=== PATIENT | male | born 1955 | race African-American/Black ===

== ENCOUNTER 2020-06-18 13:49 | Inpatient (IN) | payer MEDICARE ==
[~2020-06-18] VITALS: Ht 172.7 cm; Wt 87.5 kg
--- NOTE | 2020-06-18 14:17 | NUR ---
URINE COLLECTED AND SENT TO LAB.
[2020-06-18 14:28] LABS: BASOPHILS 0 % (0-2); EOSINOPHILS 0.8 % (0-7); HEMATOCRIT 25.5 % (42.0-54.0); HEMOGLOBIN 8.6 g/dL (13.5-17.5); IMMATURE GRANULOCYTES 0.4 % (0-5); LYMPHOCYTE ABS# 1.04 10x3/uL (1.32-3.57); LYMPHOCYTES 20.6 % (15-50); MCH 28.6 pg (26.0-34.0); MCHC 33.7 g/dL (31.0-37.0); MCV 84.7 fL (80.0-100.0); MEAN PLATELET VOLUME 9.9 fL (7.4-10.4); MONOCYTES 10.9 % (2-11); NEUTROPHIL ABS# 3.39 10x3/uL (1.78-5.38); NEUTROPHILS 67.3 % (40-80); PLATELET COUNT 153 10x3/uL (130-400); RBC 3.01 10x6/uL (4.20-6.10); RDW 13.6 % (11.5-14.5)
[2020-06-18 14:35] LABS: APTT 29.3 SECONDS (22.8-39.4); INR 1.27 (0.85-1.17); PROTIME 14.7 SECONDS (11.6-15.0)
[2020-06-18 14:45] LABS: BILIRUBIN NEGATIVE (NEGATIVE); KETONE NEGATIVE (NEGATIVE); NITRITE NEGATIVE (NEGATIVE); UROBILINOGEN NORMAL mg/dL (< 2)
[2020-06-18 14:46] LABS: WHITE CELLS - URINE 0-5 HPF (0-1)
[2020-06-18 14:47] LABS: BACTERIA T HPF (NONE SEEN); SQUAMOUS EPITHELIAL 0-5 HPF (0-4)
[2020-06-18 14:49] LABS: AMORPHOUS SEDIMENT <1+ LPF (NONE SEEN)
[2020-06-18 14:51] LABS: ALBUMIN 4.1 g/dL (3.4-5.0); ALKALINE PHOSPHATASE 67 U/L (30-120); ALT (SGPT) 18 U/L (10-68); BILIRUBIN - TOTAL 0.29 mg/dL (0.2-1.3); CALC OSMOLALITY 322 mosm/kg (275-300); CALCIUM 9.1 mg/dL (8.5-10.1); CARBON DIOXIDE 17.7 mmol/L (21.0-32.0); CHLORIDE - SERUM 103 mmol/L (98-107); CREATINE KINASE 219 UL (21-232); CREATININE - SERUM 13.4 mg/dL (0.6-1.3); GLUCOSE 106 mg/dL (74-106); MAGNESIUM - SERUM 1.8 mg/dL (1.8-2.4); POTASSIUM - SERUM 3.9 mmol/L (3.5-5.1); PROTEIN - SERUM 8.9 g/dL (6.4-8.2); SODIUM 143 mmol/L (136-145); TROPONIN-I < 0.017 ng/mL (0.000-0.060); eGFR NON AFRICAN AMERICAN 4 mL/min (90-120)
[2020-06-18 15:20] LABS: UREA NITROGEN 120 mg/dL (7-18)
[2020-06-18] MEDS ORDERED: FLOMAX0.4 MG PO (15:34)
[2020-06-18] MEDS ORDERED: PROCARDIA XL60 MG PO (15:34)
[2020-06-18] MEDS ORDERED: PROTONIX40 MG PO (15:34)
[2020-06-18] MEDS ORDERED: METOPROLOL TART25 MG PO (15:35)
[2020-06-18] MEDS ORDERED: CLONIDINE HCL0.1 MG PO (15:35)
[2020-06-18] MEDS ORDERED: LASIX40 MG ×2 (15:35→16:37)
[2020-06-18] MEDS ORDERED: COMBIGAN OPHT DR5 ML EACH EYE ×2 (15:36→16:35)
[2020-06-18] MEDS ORDERED: PROTONIX40 MG (16:35)
[2020-06-18] MEDS ORDERED: FUROSEMIDE40 MG PO (16:35)
[2020-06-18] MEDS ORDERED: VERIPRED 220 MG/5 ML PO (16:39)
[2020-06-18 17:12] VITALS: BP 160/96; BMI 33.5
--- NOTE | 2020-06-18 17:23 | NUR ---
RECD TO MED 2. PT ORIENTED TO CALL LIGHT AND PLAN OF CARE.
[2020-06-18 21:53] VITALS: BP 134/92
[2020-06-19 01:54] VITALS: BP 123/80
[2020-06-19 06:24] VITALS: BP 134/82
[2020-06-19 06:46] LABS: % SATURATION 36 % (15-55); IRON 63 ug/dl (35-150); TOTAL IRON BIND CAPACITY 175 ug/dl (260-445); UNSAT IRON BIND CAPACITY 112 ug/dl (150-375)
[2020-06-19 06:49] LABS: ALBUMIN 3.3 g/dL (3.4-5.0); ANION GAP 24.3 mmol/L (8-16); BILIRUBIN - TOTAL 0.22 mg/dL (0.2-1.3); CALCIUM 8.7 mg/dL (8.5-10.1); CARBON DIOXIDE 16.3 mmol/L (21.0-32.0); MAGNESIUM - SERUM 1.7 mg/dL (1.8-2.4); PHOSPHOROUS 7.2 mg/dL (2.5-4.9); POTASSIUM - SERUM 3.6 mmol/L (3.5-5.1); PROTEIN - SERUM 7.2 g/dL (6.4-8.2)
[2020-06-19 06:51] LABS: BASOPHILS 0.2 % (0-2); EOSINOPHILS 1.7 % (0-7); HEMATOCRIT 21.2 % (42.0-54.0); IMMATURE GRANULOCYTES 0.2 % (0-5); LYMPHOCYTE ABS# 1.34 10x3/uL (1.32-3.57); LYMPHOCYTES 31.7 % (15-50); MCH 28.2 pg (26.0-34.0); MCHC 33.5 g/dL (31.0-37.0); MCV 84.1 fL (80.0-100.0); MEAN PLATELET VOLUME 10.3 fL (7.4-10.4); MONOCYTES 11.8 % (2-11); NEUTROPHILS 54.4 % (40-80); PLATELET COUNT 132 10x3/uL (130-400); RBC 2.52 10x6/uL (4.20-6.10); RDW 13.4 % (11.5-14.5); WBC 4.2 10x3/uL (4.8-10.8)
--- NOTE | 2020-06-19 07:00 | NUR ---
RECEIVED REPORT. ASSUMED CARE OF PATIENT. CALL LIGHT WITHIN REACH. WHITE BOARD UPDATED, BEDSIDE SHIFT REPORT COMPLETE. TOLERATING IV FLUIDS WELL AND STATES HE FEELS BETTER AFTER RECIEVING FLUIDS. PATIENT AT BEDSIDE. NO DISTRESS. DENIES NEEDS.
[2020-06-19 07:07] LABS: HEMOGLOBIN 7.1 g/dL (13.5-17.5)
[2020-06-19 08:17] VITALS: BP 132/82
--- NOTE | 2020-06-19 08:30 | NUR ---
NEW ORDER FOR 1 UNIT PRBCs AFTER NOTIFYING SYSTEM SUPPORT TECHNICIAN OF LOW H/H.
--- NOTE | 2020-06-19 11:03 | NUR ---
ONE UNIT PRBCs INFUSING AT THIS TIME. VS STABLE. NO DISTRESS. TOLERATING INFUSION WELL. NO DISTRESS
[2020-06-19 12:48] VITALS: BP 134/83
--- NOTE | 2020-06-19 13:19 | NUR ---
TOLERATING BLOOD TRANSFUSION WELL. NO DISTRESS.
--- NOTE | 2020-06-19 14:28 | NUR ---
BLOOD INFUSION COMPLETE. NO DISTRESS. TOLERATED BLOOD TRANSFUSION WELL. PATIENT OOB TO RESTROOM AT THIS TIME.
[2020-06-19 14:52] VITALS: Ht 172.7 cm; Wt 87.5 kg
--- NOTE | 2020-06-19 16:00 | NUR ---
SCD EDUCATION PROVIDED. PATIENT DOES NOT WANT SCDs AT THIS TIME, PATIENT IS AMBULATORY. PATIENT STATES HE MIGHT TRY THEM LATER.
[2020-06-19 16:37] VITALS: BP 138/83
[2020-06-19 20:30] VITALS: BP 152/88
[2020-06-20 01:56] VITALS: BP 133/84
[2020-06-20 05:48] VITALS: BP 145/98
[2020-06-20 06:10] LABS: BASOPHILS 0.2 % (0-2); EOSINOPHILS 1.8 % (0-7); HEMATOCRIT 24.3 % (42.0-54.0); HEMOGLOBIN 8.1 g/dL (13.5-17.5); LYMPHOCYTE ABS# 1.24 10x3/uL (1.32-3.57); LYMPHOCYTES 25.3 % (15-50); MCH 28.4 pg (26.0-34.0); MCHC 33.3 g/dL (31.0-37.0); MCV 85.3 fL (80.0-100.0); MEAN PLATELET VOLUME 10.3 fL (7.4-10.4); MONOCYTES 8.4 % (2-11); NEUTROPHIL ABS# 3.16 10x3/uL (1.78-5.38); NEUTROPHILS 64.3 % (40-80); PLATELET COUNT 122 10x3/uL (130-400); RBC 2.85 10x6/uL (4.20-6.10); RDW 13.5 % (11.5-14.5); WBC 4.9 10x3/uL (4.8-10.8)
[2020-06-20 06:41] LABS: ALBUMIN 3.1 g/dL (3.4-5.0); ANION GAP 21.3 mmol/L (8-16); BILIRUBIN - TOTAL 0.28 mg/dL (0.2-1.3); CALCIUM 8.5 mg/dL (8.5-10.1); CARBON DIOXIDE 17.3 mmol/L (21.0-32.0); CREATININE - SERUM 11.2 mg/dL (0.6-1.3); MAGNESIUM - SERUM 1.5 mg/dL (1.8-2.4); PHOSPHOROUS 6.3 mg/dL (2.5-4.9); POTASSIUM - SERUM 3.6 mmol/L (3.5-5.1); PROTEIN - SERUM 6.9 g/dL (6.4-8.2)
--- NOTE | 2020-06-20 07:00 | NUR ---
RECEIVED REPORT. ASSUMED CARE OF PATIENT. RESTING WELL IN BED. PATIENT AT BEDSIDE. IV FLUIDS INFUSING ORDERED. CALL LIGHT WITHIN REACH. WHITE BOARD UPDATED. BEDSIDE SHIFT REPORT COMPLETE. NO DISTRESS.
[2020-06-20 08:47] VITALS: BP 138/87
--- NOTE | 2020-06-20 10:00 | NUR ---
WEIGHT OBTAINED USING STANDING SCALE 194.4 LBS,
[2020-06-20 12:16] VITALS: BP 1338/91
[2020-06-20 16:22] VITALS: BP 114/78
--- NOTE | 2020-06-20 17:00 | NUR ---
RESTING WELL IN BED WITH ATTENTION TOWARD TELEVISION. NO DISTRESS. DENIES NEEDS. CALL LIGHT WITHIN REACH.
[2020-06-20 21:58] VITALS: BP 134/86
[2020-06-21 02:07] VITALS: BP 141/88
[2020-06-21 06:07] VITALS: BP 140/88
[2020-06-21 06:32] LABS: BASOPHILS 0 % (0-2); EOSINOPHILS 2.1 % (0-7); HEMATOCRIT 25.5 % (42.0-54.0); HEMOGLOBIN 8.6 g/dL (13.5-17.5); IMMATURE GRANULOCYTES 0.2 % (0-5); LYMPHOCYTE ABS# 0.82 10x3/uL (1.32-3.57); LYMPHOCYTES 18.8 % (15-50); MCH 28.9 pg (26.0-34.0); MCHC 33.7 g/dL (31.0-37.0); MCV 85.6 fL (80.0-100.0); MEAN PLATELET VOLUME 10.5 fL (7.4-10.4); MONOCYTES 4.1 % (2-11); NEUTROPHIL ABS# 3.26 10x3/uL (1.78-5.38); NEUTROPHILS 74.8 % (40-80); PLATELET COUNT 131 10x3/uL (130-400); RBC 2.98 10x6/uL (4.20-6.10); RDW 13.5 % (11.5-14.5); WBC 4.4 10x3/uL (4.8-10.8)
[2020-06-21 06:48] LABS: ALBUMIN 3.2 g/dL (3.4-5.0); ANION GAP 19.3 mmol/L (8-16); BILIRUBIN - TOTAL 0.24 mg/dL (0.2-1.3); CALCIUM 8.6 mg/dL (8.5-10.1); CARBON DIOXIDE 19.6 mmol/L (21.0-32.0); MAGNESIUM - SERUM 1.5 mg/dL (1.8-2.4); PHOSPHOROUS 5.9 mg/dL (2.5-4.9); POTASSIUM - SERUM 3.9 mmol/L (3.5-5.1); PROTEIN - SERUM 6.9 g/dL (6.4-8.2)
--- NOTE | 2020-06-21 07:00 | NUR ---
RECIEVED REPORT. ASSUMED CARE OF PATIENT. BEDSIDE SHIFT REPORT COMPLETE. WHITE BOARD UPDATED. PATIENT SPOUSE AT BEDSIDE. PATIENT LYING IN BED, AWAKE AND ALERT, AWAITING EGD THIS AM. PATIENT IS NPO AT THIS TIME. NO DISTRESS. CALL LIGHT WITHIN REACH.
--- NOTE | 2020-06-21 08:10 | NUR ---
PATIENT LEFT UNIT VIA BED FOR EGD AT THIS TIME. NO DISTRESS UPON LEAVING UNIT.
[2020-06-21 08:17] VITALS: BP 140/85
--- NOTE | 2020-06-21 09:24 | NUR ---
PATIENT RETURNED FROM EGD WITH DILITATION, PATIENT TOLERATED PROCEDURE WELL. ALERT/ORIENTED, TALKING. CALL LIGHT WITHIN REACH. NO DISTRESS. VS STABLE. MONITORING GAG REFLEX.
--- NOTE | 2020-06-21 10:12 | NUR ---
PATIENT RESTING WITH ATTENTION TOWARD TELEVISION. MAGNESIUM INFUSING AT THIS TIME ORDERED WHEN PT WAS NOT AVAILABLE THIS AM. NO DISTRESS. CALL LIGHT WITHIN REACH.
[2020-06-21 12:02] VITALS: BP 159/96
--- NOTE | 2020-06-21 13:00 | NUR ---
RESTING IN BED WITH EYES OPEN, ATTENTION TOWARD TELEVISION. NO DISTRESS. CALL LIGHT WITHIN REACH.
--- NOTE | 2020-06-21 14:45 | NUR ---
NORMA PROVIDED UPON REQUEST.
[2020-06-21 16:25] VITALS: BP 141/86
--- NOTE | 2020-06-21 16:45 | NUR ---
PATIENT RESTING IN BED, PM MEAL SERVED AT THIS TIME. CALL LIGHT WITHIN REACH. DENIES NEEDS. PATIENT SPOUSE AT BEDSIDE.
--- NOTE | 2020-06-21 19:45 | NUR ---
REPORT RECEIVED, PT A&O UP IN BED WITH FAMILY AT BEDSIDE. NO S/S OF DISTRESS OBSERVED. RR EVEN & UNLABORED ON RA. BED LOCKED AND LOWERED, CL IN REACH. ASSESSMENT COMPLETE. WILL CONT POC.
[2020-06-21 20:00] VITALS: BP 139/82
[2020-06-22 06:44] LABS: BASOPHILS 0.2 % (0-2); EOSINOPHILS 1.9 % (0-7); HEMATOCRIT 27.2 % (42.0-54.0); HEMOGLOBIN 9.1 g/dL (13.5-17.5); IMMATURE GRANULOCYTES 0.2 % (0-5); LYMPHOCYTE ABS# 1.09 10x3/uL (1.32-3.57); LYMPHOCYTES 21.1 % (15-50); MCH 28.8 pg (26.0-34.0); MCHC 33.5 g/dL (31.0-37.0); MCV 86.1 fL (80.0-100.0); MONOCYTES 6.6 % (2-11); NEUTROPHIL ABS# 3.61 10x3/uL (1.78-5.38); PLATELET COUNT 122 10x3/uL (130-400); RBC 3.16 10x6/uL (4.20-6.10); RDW 13.8 % (11.5-14.5); WBC 5.2 10x3/uL (4.8-10.8)
[2020-06-22 07:00] VITALS: BP 124/78
[2020-06-22 07:14] LABS: ALBUMIN 3.2 g/dL (3.4-5.0); ANION GAP 20.8 mmol/L (8-16); BILIRUBIN - TOTAL 0.21 mg/dL (0.2-1.3); CALCIUM 8.8 mg/dL (8.5-10.1); CARBON DIOXIDE 17.1 mmol/L (21.0-32.0); CREATININE - SERUM 9.5 mg/dL (0.6-1.3); MAGNESIUM - SERUM 1.7 mg/dL (1.8-2.4); PHOSPHOROUS 5.2 mg/dL (2.5-4.9); POTASSIUM - SERUM 3.9 mmol/L (3.5-5.1); PROTEIN - SERUM 7.1 g/dL (6.4-8.2)
--- NOTE | 2020-06-22 08:11 | NUR ---
AM ROUNDING DONE, ON ROOM AIR. ON HEART MONITOR. LEFT FA SEEN WITH PIV OF LR AT 75 CC/HR. ORANGE SWAB CAP PLACED. AT BEDSIDE. NEED STOOL SAMPLE. REQUESTING STOOL SOFTNER, ATE PRUNES. UP AT MISA.
[2020-06-22 11:00] VITALS: BP 150/72
[2020-06-22 11:11] LABS: SPE - A/G RATIO 1.1 (0.7-1.7); SPE - ALBUMIN 3.5 g/dL (2.9-4.4); SPE - ALPHA-1 GLOBULIN 0.2 g/dL (0.0-0.4); SPE - ALPHA-2 GLOBULIN 0.7 g/dL (0.4-1.0); SPE - BETA GLOBULIN 0.9 g/dL (0.7-1.3); SPE - GAMMA GLOBULIN 1.4 g/dL (0.4-1.8); SPE - M-SPIKE Not Observed g/dL (Not Observed); SPE - TOTAL PROTEIN 6.6 g/dL (6.0-8.5)
[2020-06-22 11:30] VITALS: BP 121/83
--- NOTE | 2020-06-22 11:43 | NUR ---
HEART MONITOR TAKEN OFF ORDERED AND TURNED IN.
[2020-06-22 12:11] LABS: UPE RAND - ALBUMIN 41.9 % (()); UPE RAND - ALPHA 1 GLOBULIN 5.3 % (()); UPE RAND - ALPHA 2 GLOBULIN 13.4 % (()); UPE RAND - GAMMA GLOBULIN 18.4 % (())
[2020-06-22 13:11] LABS: CEA 1.9 ng/mL (0.0-4.7)
--- NOTE | 2020-06-22 13:47 | NUR ---
Nutrition Follow-up: S/p EGD with dilation yesterday. Good appetite/PO intake. States last BM was 06/19. Noted diet was resumed as regular following procedure yesterday. Diet: Regular Wt: 192.8# (06/21 - bedscale); 194.4# (06/20 - standing); 220# (06/18 - stated) Labs noted: K+ 3.9, BUN 91, Cre 9.5, GFR 7, PO4 5.2, Mg 1.7, Alb 3.2 Meds noted: Venofer, Nephrovite, Pepcid, Renagel, LR @ 75, electrolyte protocol -Change back to renal diet. -Monitor wt. -RD will follow up within 7 days if pt still admitted.
[2020-06-22 16:00] VITALS: BP 126/79
--- NOTE | 2020-06-22 19:26 | NUR ---
REPORT RECEIVED, PT A&O, UP IN BED WITH FAMILY AT BEDSIDE. NO S/S OF DISTRESS OBSERVED. RR EVEN & UNLABORED ON RA. BED LOCKED AND LOWERED, CL IN REACH. ASSESSMENT COMPLETE. WILL CONT POC.
[2020-06-22 20:00] VITALS: BP 143/88
[2020-06-23] VITALS: BP 145/92
[2020-06-23 04:00] VITALS: BP 147/92
[2020-06-23 05:54] LABS: BASOPHILS 0.2 % (0-2); EOSINOPHILS 2.3 % (0-7); IMMATURE GRANULOCYTES 0.2 % (0-5); LYMPHOCYTE ABS# 1.11 10x3/uL (1.32-3.57); LYMPHOCYTES 21.3 % (15-50); MCH 28.9 pg (26.0-34.0); MCHC 33.3 g/dL (31.0-37.0); MCV 86.8 fL (80.0-100.0); MEAN PLATELET VOLUME 10.4 fL (7.4-10.4); MONOCYTES 6.1 % (2-11); NEUTROPHIL ABS# 3.65 10x3/uL (1.78-5.38); NEUTROPHILS 69.9 % (40-80); PLATELET COUNT 126 10x3/uL (130-400); RBC 3.11 10x6/uL (4.20-6.10); WBC 5.2 10x3/uL (4.8-10.8)
[2020-06-23 06:26] LABS: ALBUMIN 3.1 g/dL (3.4-5.0); ANION GAP 17.7 mmol/L (8-16); BILIRUBIN - TOTAL 0.17 mg/dL (0.2-1.3); CALCIUM 9.2 mg/dL (8.5-10.1); CARBON DIOXIDE 20.7 mmol/L (21.0-32.0); MAGNESIUM - SERUM 1.8 mg/dL (1.8-2.4); POTASSIUM - SERUM 4.4 mmol/L (3.5-5.1); PROTEIN - SERUM 6.9 g/dL (6.4-8.2)
--- NOTE | 2020-06-23 07:30 | NUR ---
LAYING IN BED WITH AT BEDSIDE, NO DISTRESS NOTED, CALL LIGHT IN REACH, WILL MONITOR
[2020-06-23 08:35] VITALS: BP 172/98
[2020-06-23] MEDS ORDERED: ROCALTROL0.25 MCG PO (11:29)
[2020-06-23] MEDS ORDERED: NEPHRO-VITE RX1 TAB PO (11:30)
[2020-06-23] MEDS ORDERED: RENAGEL800 MG PO (11:30)
[2020-06-23] MEDS ORDERED: EZFE 200200 MG PO (11:31)
[2020-06-23 11:46] VITALS: BP 168/86
--- NOTE | 2020-06-23 12:00 | NUR ---
LAYING IN BED WITH AT BEDSIDE, NO NEEDS VOICED, CALL LIGHT IN REACH, WILL MONITOR
--- NOTE | 2020-06-23 13:21 | MORECARE ---
CASE MANAGEMENT DISCHARGE SUMMARY PATIENT: RICARDO MORTON UNIT: [id number] ADM DATE: 06/18/20 AGE: 65 : 53 SEX: M ROOM/BED: D.2112 AUTHOR: ABDIRASHID,DOC PHYSICIAN: REFERRING PHYSICIAN: SLOANE YBARRA MD DATE OF SERVICE: 06/23/20 Case Management Discharge Planning Summary DCP REVIEW SUMMARY ANTICIPATED D/C DATE: 06/23/2020 EXPECTED LOS : 5 CASE STATUS: DCP Initiated INITIAL REVIEW: 06/23/2020 INITIAL REVIEWER: Nisreen Goins FINAL DISCHARGE DISPOSITION: : FINAL REVIEWER: FINAL REVIEW DATE: DCP Focus Questions & Answers QUESTION: ANSWER : PATIENT: RICARDO MORTON ENCOUNTER: [id number] MEDICAL RECORD#: [id number] ADMISSION DATE: 06/18/2020 DISCHARGE DATE: ATTENDING MD: SLOANE VUONG : AGE: 65 MARITAL STATUS: M DC PLAN ID: [id number] FACILITY: [facility] PRINTED ON: 06/23/20 13:21 CT All edits/amendments must be made on the electronic document DICTATION DATE: 06/23/20 132 BREAK OUT MAN: DM 06/23/20 1321 RPT#: [id number] DC DATE: STATUS: ADM IN [facility] [address] [place] [address] END OF REPORT
--- NOTE | 2020-06-23 13:33 | MORECARE ---
CASE MANAGEMENT DISCHARGE SUMMARY PATIENT: RICARDO SHAVER UNIT: [id number] ADM DATE: 06/18/20 AGE: 65 : 53 SEX: M ROOM/BED: D.5923 AUTHOR: ABDIRASHID,DOC PHYSICIAN: REFERRING PHYSICIAN: SLOANE YBARRA MD DATE OF SERVICE: 06/23/20 Case Management Discharge Planning Summary COMMENTS ENTERED DATE: 06/23/20 13:26 CT COMMENT TYPE: Discharge Planning REVIEWER: Nisreen Goins DC PLAN: Home with spouse ANTICIPATED DC NEEDS: No needs CM met with patient to complete initial dc planning assessment. CM educated patient on the CM role and verbal consent given by patient to complete assessment. CM verified patient's address, phone number, and emergency contact phone numbers. Patient lives at home with spouse. At discharge patient plans to return and feels this is a safe discharge. CM discussed availability of home health, rehab services, and medical equipment. Patient denied known discharge needs at this time. Transportation provider at discharge will be his spouse (she is here). His PCP is Dr. Luis Alberto Singleton in [place]. He has 6 steps to enter his one level home and states "they're no problem". CM will continue to follow and will assist as needed with dc plans/needs. DCP REVIEW SUMMARY ANTICIPATED D/C DATE: 06/23/2020 EXPECTED LOS : 5 CASE STATUS: DCP Initiated INITIAL REVIEW: 06/23/2020 INITIAL REVIEWER: Nisreen Goins FINAL DISCHARGE DISPOSITION: : FINAL REVIEWER: FINAL REVIEW DATE: DCP Focus Questions & Answers DCP Screen QUESTION: ANSWER High Risk Factors: : Polypharmacy (greater than 10 meds) DCP Evaluation QUESTION: ANSWER Patient's ability to cope with chronic illness : a. Adequate (0-3 ED visits in 6 mos., adequate financial resources, attends scheduled appts.) Patient and/or caregiver agree upon recommended discharge plan? : Yes Family / Caregiver's ability to cope with chronic illness: : a. Adequate (ability to meet patient's medical needs, ensures patient attends medical appts.) Patient's current cognitive status: : *Oriented to person, place, situation, time and present Patient gives permission to discuss discharge plans with: (name, relationship and number) : [place] - [phone] Functional screen assessment: : Basic needs can adequately be met by self Family / Caregiver's ability to cope with chronic illness: : a. Adequate (ability to meet patient's medical needs, ensures patient attends medical appts.) Physical Status: : Independent with ADL's Equipment needed for post hospitalization: : None Living Arrangements: : Home with Spouse/Significant Other Results of this evaluation have been discussed with: : Spouse Results of this evaluation have been discussed with: : Patient Patient with capacity for self-care or can be cared for in same environment as prior to hospitalization? : Yes Baseline cognitive status: : *Oriented to person, place, situation, time and present Physical environment modification needed / anticipated for discharge: : No Preadmission facility can/cannot provide post hospital level of care needs: : Can - at same level of care as preadmission Medication Management: : Patient states can afford medications Pharmacy name(s): : [facility] in [place] or [facility] for mail order Does Patient have transportation to get home and to follow-up medical appointments when discharged from the hospital? : Yes Would patient like to participate in any Care Coordination programs (if applicable): : Not applicable Comments: : He drives himself and his spouse also drives Equipment in use: : None Mental health screen: : No mental health history Abuse/Neglect: : None Resources / Services in place: : None DCP Re-evaluation QUESTION: ANSWER Would patient like to participate in any Care Coordination programs (if applicable): : Not applicable PATIENT: RICARDO SHAVER ENCOUNTER: [id number] MEDICAL RECORD#: [id number] ADMISSION DATE: 06/18/2020 DISCHARGE DATE: ATTENDING MD: SLOANE VUONG : AGE: 65 MARITAL STATUS: M DC PLAN ID: [id number] FACILITY: [facility] PRINTED ON: 06/23/20 13:33 CT All edits/amendments must be made on the electronic document DICTATION DATE: 06/23/20 133 LIVE SOURCE OPERATOR: BRADY 06/23/20 133 RPT#: [id number] DC DATE: STATUS: ADM IN [facility] [address] [place] [address] END OF REPORT
--- NOTE | 2020-06-23 14:00 | NUR ---
PIV DCD AT THIS TIME
--- NOTE | 2020-06-23 14:45 | NUR ---
PT DISCHARGED HOME WITH PRESENT, INSTRUCTIONS GIVEN AND MEDICATIONS EXPLAINED, NO DISTRESS NOTED AT THIS TIME
--- NOTE | 2020-06-23 19:49 | MORECARE ---
CASE MANAGEMENT DISCHARGE SUMMARY PATIENT: RICARDO SHAVER UNIT: [id number] ADM DATE: 06/18/20 AGE: 65 : 53 SEX: M ROOM/BED: D.3593 AUTHOR: ABDIRASHID,DOC PHYSICIAN: REFERRING PHYSICIAN: SLOANE YBARRA MD DATE OF SERVICE: 06/23/20 Case Management Discharge Planning Summary COMMENTS ENTERED DATE: 06/23/20 13:26 CT COMMENT TYPE: Discharge Planning REVIEWER: Nisreen Goins DC PLAN: Home with spouse ANTICIPATED DC NEEDS: No needs CM met with patient to complete initial dc planning assessment. CM educated patient on the CM role and verbal consent given by patient to complete assessment. CM verified patient's address, phone number, and emergency contact phone numbers. Patient lives at home with spouse. At discharge patient plans to return and feels this is a safe discharge. CM discussed availability of home health, rehab services, and medical equipment. Patient denied known discharge needs at this time. Transportation provider at discharge will be his spouse (she is here). His PCP is Dr. Luis Alberto Singleton in [place]. He has 6 steps to enter his one level home and states "they're no problem". CM will continue to follow and will assist as needed with dc plans/needs. DCP REVIEW SUMMARY ANTICIPATED D/C DATE: 06/23/2020 EXPECTED LOS : 5 CASE STATUS: DCP Initiated INITIAL REVIEW: 06/23/2020 INITIAL REVIEWER: Nisreen Goins FINAL DISCHARGE DISPOSITION: : FINAL REVIEWER: FINAL REVIEW DATE: DCP Focus Questions & Answers DCP Screen QUESTION: ANSWER High Risk Factors: : Polypharmacy (greater than 10 meds) DCP Evaluation QUESTION: ANSWER Patient's ability to cope with chronic illness : a. Adequate (0-3 ED visits in 6 mos., adequate financial resources, attends scheduled appts.) Patient and/or caregiver agree upon recommended discharge plan? : Yes Family / Caregiver's ability to cope with chronic illness: : a. Adequate (ability to meet patient's medical needs, ensures patient attends medical appts.) Patient's current cognitive status: : *Oriented to person, place, situation, time and present Patient gives permission to discuss discharge plans with: (name, relationship and number) : [place] - [phone] Functional screen assessment: : Basic needs can adequately be met by self Family / Caregiver's ability to cope with chronic illness: : a. Adequate (ability to meet patient's medical needs, ensures patient attends medical appts.) Physical Status: : Independent with ADL's Equipment needed for post hospitalization: : None Living Arrangements: : Home with Spouse/Significant Other Results of this evaluation have been discussed with: : Spouse Results of this evaluation have been discussed with: : Patient Patient with capacity for self-care or can be cared for in same environment as prior to hospitalization? : Yes Baseline cognitive status: : *Oriented to person, place, situation, time and present Physical environment modification needed / anticipated for discharge: : No Preadmission facility can/cannot provide post hospital level of care needs: : Can - at same level of care as preadmission Medication Management: : Patient states can afford medications Pharmacy name(s): : [facility] in [place] or [facility] for mail order Does Patient have transportation to get home and to follow-up medical appointments when discharged from the hospital? : Yes Would patient like to participate in any Care Coordination programs (if applicable): : Not applicable Comments: : He drives himself and his spouse also drives Equipment in use: : None Mental health screen: : No mental health history Abuse/Neglect: : None Resources / Services in place: : None DCP Re-evaluation QUESTION: ANSWER Would patient like to participate in any Care Coordination programs (if applicable): : Not applicable PATIENT: RICARDO SHAVER ENCOUNTER: [id number] MEDICAL RECORD#: [id number] ADMISSION DATE: 06/18/2020 DISCHARGE DATE: 06/23/2020 ATTENDING MD: SLOANE VUONG : AGE: 65 MARITAL STATUS: M DC PLAN ID: [id number] FACILITY: [facility] PRINTED ON: 06/23/20 19:49 CT All edits/amendments must be made on the electronic document DICTATION DATE: 06/23/201948 PROFESSOR OF ENVIRONMENTAL ENGINEERING: BRADY 06/23/201948 RPT#: [id number] DC DATE:06/23/20 STATUS: DIS IN [facility] [address] [place] [address] END OF REPORT
== END 2020-06-23 14:45 | disposition home or self-care (01) | DRG 683 ==
LOC: D.ER 13:49 → D.M2 15:11 → D.ER 16:03 → D.M2 06-23 14:45
PROVIDERS: Family Medicine; Internal Medicine; Surgery; ADMIT Emergency Medicine; ATTEND Emergency Medicine
PROC: 0D758ZZ Dilation of Esophagus, Via Natural or Artificial Opening Endoscopic (ICD-10-PCS; principal; 2020-06-21 06:43)
DX: I12.9 Hypertensive chronic kidney disease with stage 1 through stage 4 chronic kidney disease, or unspecified chronic kidney disease (principal); N17.9 Acute kidney failure, unspecified; N18.4 Chronic kidney disease, stage 4 (severe); K21.9 Gastro-esophageal reflux disease without esophagitis; D63.1 Anemia in chronic kidney disease; G47.33 Obstructive sleep apnea (adult) (pediatric); E86.9 Volume depletion, unspecified; G89.29 Other chronic pain; R10.9 Unspecified abdominal pain; R13.10 Dysphagia, unspecified; K22.4 Dyskinesia of esophagus; E83.42 Hypomagnesemia